=== PATIENT | female | born 1970 | race Hispanic/Latino ===

== ENCOUNTER 2022-05-15 13:51 | Emergency (ER) | payer BC, OTHER ==
[~2022-05-15] VITALS: Ht 160 cm; Wt 82.2 kg
[2022-05-15] MEDS ORDERED: IBUPROFEN 600 MG TAB PO STA (14:36)
== END 2022-05-15 16:00 | disposition home or self-care (01) ==
LOC: FSED 13:54
DX: S90.112A Contusion of left great toe without damage to nail, initial encounter (principal); R51.9 Headache, unspecified; W01.198A Fall on same level from slipping, tripping and stumbling with subsequent striking against other object, initial encounter; Y93.01 Activity, walking, marching and hiking; Y92.008 Other place in unspecified non-institutional (private) residence as the place of occurrence of the external cause
CPT/HCPCS: 99283